=== PATIENT | female | born 1935 | race Hispanic/Latino ===

== ENCOUNTER 2017-06-16 13:31 | Emergency (ER) | payer MEDICARE ==
[~2017-06-16 13:31] MED LIST: AMLO10TA2 PO; ATOR40TA71 PO; CALC0.5C11 PO; CLON0.1T PO; FOLI1TAB85 PO; FURO40TA5 PO; INSU100V3 SQ; LISI10TA7 PO; METO50TA18 PO; NPH,100V SQ
[2017-06-16 14:11] LABS: BASOPHILS % (AUTO) 0.4 % (0.0-5.0); EOSINOPHILS % (AUTO) 0.3 % (0.0-8.0); HEMATOCRIT 32.8 % (36-48); LYMPHOCYTES % (AUTO) 11.3 % (21.0-51.0); MEAN CORPUSCULAR HEMOGLOBIN 30.9 pg (27.0-33.0); MEAN CORPUSCULAR HGB CONC 33.5 g/dL (32.0-36.0); MEAN CORPUSCULAR VOLUME 92.3 fL (79-99); MONOCYTES % (AUTO) 8.1 % (3.0-13.0); NEUTROPHILS % (AUTO) 79.9 % (40.0-77.0); PLATELET COUNT (AUTO) 280 K/uL (130-400); RED BLOOD CELL COUNT(AUTO) 3.56 MIL/uL (4.00-5.50); RED CELL DISTRIBUTION WIDTH 14.3 % (11.0-15.5); WHITE BLOOD COUNT (AUTO) 11.4 K/uL (4.8-10.8)
[2017-06-16 14:17] LABS: CREATININE 1.5 mg/dL (0.5-1.5); POTASSIUM 4.9 mmol/L (3.5-5.1)
[2017-06-16 14:18] LABS: INR 0.98 (0.85-1.15); PARTIAL THROMBOPLASTIN TIME 29.9 SEC (26.3-35.5); PROTHROMBIN TIME 10.3 SEC (9.6-11.6)
[2017-06-16 14:18] LABS: APPEARANCE,URINE Cloudy (CLEAR); BILIRUBIN,URINE Negative (NEGATIVE); COLOR,URINE Yellow (YELLOW); GLUCOSE, URINE (UA) Negative (NEGATIVE); KETONES,URINE Negative (NEGATIVE); LEUKOCYTE ESTERASE ,URINE Large (NEGATIVE); NITRATE,URINE Negative (NEGATIVE); OCCULT BLOOD,URINE Trace (NEGATIVE); PROTEIN,URINE POS 2+ (NEGATIVE); UROBILINOGEN,URINE 0.2 mg/dL (0.2-1.0)
[2017-06-16 14:22] LABS: ALBUMIN 3.1 g/dL (3.5-5.0); BILIRUBIN,TOTAL 0.6 mg/dL (0.2-1.0); TOTAL PROTEIN, SERUM 8.2 g/dL (6.0-8.3)
[2017-06-16] MEDS ORDERED: ONDANSETRON HCL 4 MG/2 ML VIAL ONE (14:22)
[2017-06-16] MEDS ORDERED: FAMOTIDINE/PF 20 MG/2 ML VIAL IV ONE (14:22)
[2017-06-16 14:30] LABS: BACTERIA,URINE Few /HPF (None Seen); RBC,URINE 0-1 /HPF (0-1)
[2017-06-16 14:38] LABS: B-TYPE NATRIURETIC PEPTIDE 1440 pg/mL (0-100)
[2017-06-16] MEDS ORDERED: NITROFURANTOIN MONOHYD/M-CRYST 100 MG CAPSULE PO ONE (14:53)
[2017-06-16] MEDS ORDERED: FUROSEMIDE 10 MG/ML 4ML VIAL ONE (14:53)
[2017-06-16] MEDS ORDERED: TRAMADOL HCL 50 MG TABLET ONE (14:54)
[2017-06-17] MEDS ORDERED: INSU500V SQ (12:00)
[2017-06-17] MEDS ORDERED: NPH,100V SQ (12:00)
[2017-06-17] MEDS ORDERED: TRAM50TA4 PO (12:00)
[2017-06-17] MEDS ORDERED: PREG50 PO (12:01)
== END 2017-06-16 16:04 | disposition home or self-care (01) ==
LOC: EDH 13:31
DX: I11.0 Hypertensive heart disease with heart failure (principal); N39.0 Urinary tract infection, site not specified; I50.9 Heart failure, unspecified; E11.9 Type 2 diabetes mellitus without complications; Z86.73 Personal history of transient ischemic attack (TIA), and cerebral infarction without residual deficits; Z88.0 Allergy status to penicillin
CPT/HCPCS: 36415; 71045; 80053; 81001; 82150; 83690; 83880; 84484; 85025; 85610; 85730; 93005; 96374; 96375; 99285; J1940; J2405; J3490

== ENCOUNTER 2017-06-17 09:24 | Inpatient (IN) | payer MEDICARE ==
[~2017-06-17] VITALS: Ht 157.5 cm; Wt 91.2 kg
[2017-06-17] MEDS ORDERED: HYDROCODONE/ACETAMINOPHEN 10/325 MG TAB ONE (09:50)
[2017-06-17 09:54] LABS: BASOPHILS % (AUTO) 0.2 % (0.0-5.0); EOSINOPHILS % (AUTO) 0.1 % (0.0-8.0); HEMATOCRIT 32.5 % (36-48); LYMPHOCYTES % (AUTO) 5.3 % (21.0-51.0); MEAN CORPUSCULAR HEMOGLOBIN 31.2 pg (27.0-33.0); MEAN CORPUSCULAR HGB CONC 33.5 g/dL (32.0-36.0); MEAN CORPUSCULAR VOLUME 93.3 fL (79-99); MONOCYTES % (AUTO) 8.9 % (3.0-13.0); NEUTROPHILS % (AUTO) 85.5 % (40.0-77.0); PLATELET COUNT (AUTO) 279 K/uL (130-400); RED BLOOD CELL COUNT(AUTO) 3.48 MIL/uL (4.00-5.50); RED CELL DISTRIBUTION WIDTH 14.2 % (11.0-15.5)
[2017-06-17 10:13] LABS: APPEARANCE,URINE TURBID (CLEAR); BILIRUBIN,URINE NEGATIVE (NEGATIVE); COLOR,URINE YELLOW (YELLOW); GLUCOSE, URINE (UA) NEGATIVE (NEGATIVE); KETONES,URINE NEGATIVE (NEGATIVE); LEUKOCYTE ESTERASE ,URINE MODERATE (NEGATIVE); NITRATE,URINE NEGATIVE (NEGATIVE); OCCULT BLOOD,URINE SMALL (NEGATIVE); PROTEIN,URINE >=300 (NEGATIVE); UROBILINOGEN,URINE 0.2 mg/dL (0.2-1.0)
[2017-06-17 10:14] LABS: CREATININE 1.8 mg/dL (0.5-1.5); POTASSIUM 4.8 mmol/L (3.5-5.1)
[2017-06-17 10:18] LABS: BILIRUBIN,TOTAL 0.7 mg/dL (0.2-1.0); TOTAL PROTEIN, SERUM 8.1 g/dL (6.0-8.3)
[2017-06-17 10:33] LABS: BACTERIA,URINE Moderate /HPF (None Seen); SQUAMOUS EPITHELIAL CELL,UR 30-50 /LPF (0-2)
[2017-06-17 10:34] LABS: WBC,URINE 51-100 /HPF (0-1)
[2017-06-17] MEDS ORDERED: INSULIN HUMULIN R 100 UNIT/ML 3ML ONE (10:38)
[2017-06-17] MEDS ORDERED: CEFTRIAXONE SODIUM 1 GM ONE (10:44)
[2017-06-17] MEDS ORDERED: FUROSEMIDE 10 MG/ML 4ML VIAL ONE (11:10)
[2017-06-17] MEDS ORDERED: TRAM50TA4 PO (12:00)
[2017-06-17] MEDS ORDERED: ONDANSETRON HCL 4 MG/2 ML VIAL IVP PRN (12:00)
[2017-06-17] MEDS ORDERED: INSU500V SQ (12:00)
[2017-06-17] MEDS ORDERED: NPH,100V SQ (12:00)
[2017-06-17] MEDS ORDERED: ACETAMINOPHEN 325 MG TAB PO PRN (12:00)
[2017-06-17] MEDS ORDERED: PREG50 PO (12:01)
[2017-06-17 12:10] VITALS: BP 136/76
[2017-06-17] MEDS: HEPARIN SODIUM 5000UNIT/ML 1ML VIAL SQ SCH ×2 (14:08→20:13)
[2017-06-17] MEDS ORDERED: TRAMADOL HCL 50 MG TABLET PO PRN (15:30)
[2017-06-17 16:00] VITALS: BP 185/68
[2017-06-17] MEDS: INSULIN R PO SS1 SQ SCH ×2 (16:30→20:58)
[2017-06-17] MEDS ORDERED: CLONIDINE HCL 0.1 MG TABLET PO PRN (17:00)
[2017-06-17] MEDS ORDERED: FUROSEMIDE 40 MG TABLET PO SCH (17:00)
[2017-06-17] MEDS ORDERED: CLONIDINE HCL 0.1 MG TABLET ONE (17:01)
[2017-06-17] MEDS: CLONIDINE HCL 0.1 MG TABLET PO SCH (17:07)
[2017-06-17] MEDS: INSULIN HUMULIN R 100 UNIT/ML 3ML SQ SCH (17:36)
[2017-06-17 19:30] VITALS: BP 146/80
[2017-06-17] MEDS: CEFTRIAXONE SODIUM 1 GM IVP SCH (20:35)
[2017-06-17] MEDS: ATORVASTATIN CALCIUM 40 MG TABLET PO SCH (20:35)
[2017-06-17] MEDS: METOPROLOL TARTRATE 50 MG TAB PO SCH (20:35)
[2017-06-17] MEDS: PREGABALIN 25 MG CAP PO SCH (20:36)
[2017-06-17] MEDS ORDERED: INSULIN NPH 100 UNIT/ML 3ML SQ SCH (21:00)
[2017-06-17 23:25] VITALS: BP 165/65
[2017-06-18] VITALS (7 sets, daily range): BP systolic 123–170; BP diastolic 52–98
[2017-06-18 03:58] LABS: HEMATOCRIT 29.2 % (36-48); MEAN CORPUSCULAR HEMOGLOBIN 30.9 pg (27.0-33.0); MEAN CORPUSCULAR HGB CONC 33.5 g/dL (32.0-36.0); MEAN CORPUSCULAR VOLUME 92.1 fL (79-99); NUCLEATED RED BLOOD CELLS 0.1 % (0.0-0.19); PLATELET COUNT (AUTO) 251 K/uL (130-400); RED BLOOD CELL COUNT(AUTO) 3.17 MIL/uL (4.00-5.50); RED CELL DISTRIBUTION WIDTH 14.1 % (11.0-15.5); WHITE BLOOD COUNT (AUTO) 12.9 K/uL (4.8-10.8)
[2017-06-18 04:08] LABS: MAGNESIUM 2.4 mg/dL (1.80-2.40); PHOSPHORUS 3.9 mg/dL (2.5-4.9)
[2017-06-18 04:13] LABS: B-TYPE NATRIURETIC PEPTIDE 1860 pg/mL (0-100)
[2017-06-18] MEDS: INSULIN R PO SS1 SQ SCH ×4 (07:30→21:00)
[2017-06-18] MEDS: INSULIN HUMULIN R 100 UNIT/ML 3ML SQ SCH ×2 (07:48→17:20)
[2017-06-18] MEDS: INSULIN NPH 100 UNIT/ML 3ML SQ SCH ×2 (07:48→17:20)
[2017-06-18] MEDS: FOLIC ACID/VITAMIN B COMP W-C 1 MG CAPSULE PO SCH (10:42)
[2017-06-18] MEDS: PREGABALIN 25 MG CAP PO SCH ×2 (10:42→21:29)
[2017-06-18] MEDS: METOPROLOL TARTRATE 50 MG TAB PO SCH ×2 (10:43→21:28)
[2017-06-18] MEDS: FOLIC ACID 1 MG TABLET PO SCH (10:43)
[2017-06-18] MEDS: AMLODIPINE BESYLATE 5 MG TAB PO SCH (10:43)
[2017-06-18] MEDS: CLONIDINE HCL 0.1 MG TABLET PO SCH ×2 (10:43→21:28)
[2017-06-18] MEDS: CYANOCOBALAMIN (VITAMIN B-12) 1000 MCG/ML 1ML VIAL IM SCH (10:44)
[2017-06-18] MEDS: CEFTRIAXONE SODIUM 1 GM IVP SCH ×2 (10:49→21:29)
[2017-06-18] MEDS: HEPARIN SODIUM 5000UNIT/ML 1ML VIAL SQ SCH ×2 (11:09→21:46)
[2017-06-18] MEDS: BUMETANIDE 1 MG TAB PO SCH ×2 (12:28→22:12)
[2017-06-18] MEDS: ATORVASTATIN CALCIUM 40 MG TABLET PO SCH (21:28)
[2017-06-19 04:00] VITALS: BP 145/67
[2017-06-19 04:59] LABS: HEMATOCRIT 27.3 % (36-48); MEAN CORPUSCULAR HEMOGLOBIN 31.7 pg (27.0-33.0); MEAN CORPUSCULAR HGB CONC 34.2 g/dL (32.0-36.0); MEAN CORPUSCULAR VOLUME 92.7 fL (79-99); PLATELET COUNT (AUTO) 261 K/uL (130-400); RED BLOOD CELL COUNT(AUTO) 2.95 MIL/uL (4.00-5.50); RED CELL DISTRIBUTION WIDTH 13.9 % (11.0-15.5); WHITE BLOOD COUNT (AUTO) 10.1 K/uL (4.8-10.8)
[2017-06-19 05:38] LABS: CREATININE 1.8 mg/dL (0.5-1.5); MAGNESIUM 2.3 mg/dL (1.80-2.40); POTASSIUM 4.4 mmol/L (3.5-5.1)
[2017-06-19] MEDS: INSULIN R PO SS1 SQ SCH ×4 (06:43→22:10)
[2017-06-19 08:00] VITALS: BP 179/87
[2017-06-19] MEDS: INSULIN NPH 100 UNIT/ML 3ML SQ SCH ×2 (08:04→16:30)
[2017-06-19] MEDS: INSULIN HUMULIN R 100 UNIT/ML 3ML SQ SCH ×2 (08:05→15:08)
[2017-06-19] MEDS: CYANOCOBALAMIN (VITAMIN B-12) 1000 MCG/ML 1ML VIAL IM SCH (09:08)
[2017-06-19] MEDS: CEFTRIAXONE SODIUM 1 GM IVP SCH ×2 (09:25→21:48)
[2017-06-19] MEDS: FOLIC ACID 1 MG TABLET PO SCH (09:31)
[2017-06-19] MEDS: PREGABALIN 25 MG CAP PO SCH ×2 (09:31→21:47)
[2017-06-19] MEDS: FOLIC ACID/VITAMIN B COMP W-C 1 MG CAPSULE PO SCH (09:31)
[2017-06-19] MEDS: METOPROLOL TARTRATE 50 MG TAB PO SCH ×2 (09:31→21:48)
[2017-06-19] MEDS: CLONIDINE HCL 0.1 MG TABLET PO SCH ×2 (09:32→21:48)
[2017-06-19] MEDS: AMLODIPINE BESYLATE 5 MG TAB PO SCH (09:32)
[2017-06-19] MEDS: HEPARIN SODIUM 5000UNIT/ML 1ML VIAL SQ SCH ×2 (09:36→22:09)
[2017-06-19 12:00] VITALS: BP 135/83
[2017-06-19] MEDS: BUMETANIDE 1 MG TAB PO SCH ×2 (14:49→21:47)
[2017-06-19] MEDS ORDERED: ALPRAZOLAM 0.5 MG TABLET PO PRN (15:00)
[2017-06-19 15:58] VITALS: BP 164/73
[2017-06-19 19:11] VITALS: BP 153/69
[2017-06-19] MEDS: ATORVASTATIN CALCIUM 40 MG TABLET PO SCH (21:47)
[2017-06-19 23:55] VITALS: BP 154/60
[2017-06-20] MEDS: IPRATROPIUM/ALBUTEROL SULFATE 3 ML SOLUTION IH SCH ×5 (00:40→23:50)
[2017-06-20 03:33] VITALS: BP 158/70
[2017-06-20 03:59] LABS: BASOPHILS % (AUTO) 0.5 % (0.0-5.0); EOSINOPHILS % (AUTO) 2.5 % (0.0-8.0); LYMPHOCYTES % (AUTO) 13.6 % (21.0-51.0); MEAN CORPUSCULAR HEMOGLOBIN 32.1 pg (27.0-33.0); MEAN CORPUSCULAR HGB CONC 34.6 g/dL (32.0-36.0); MONOCYTES % (AUTO) 9.1 % (3.0-13.0); NEUTROPHILS % (AUTO) 74.3 % (40.0-77.0); PLATELET COUNT (AUTO) 275 K/uL (130-400); RED BLOOD CELL COUNT(AUTO) 2.91 MIL/uL (4.00-5.50); RED CELL DISTRIBUTION WIDTH 13.7 % (11.0-15.5); WHITE BLOOD COUNT (AUTO) 8.4 K/uL (4.8-10.8)
[2017-06-20 04:16] LABS: HEMOGLOBIN A1C 8.2 % (4.0-6.0)
[2017-06-20 04:30] LABS: % IRON SATURATION 15.4 % (22-44)
[2017-06-20 04:36] LABS: ALBUMIN 2.2 g/dL (3.5-5.0); BILIRUBIN,DIRECT 0.1 mg/dL (0.0-0.3); BILIRUBIN,TOTAL 0.2 mg/dL (0.2-1.0); CREATININE 1.7 mg/dL (0.5-1.5); MAGNESIUM 2.5 mg/dL (1.80-2.40); PHOSPHORUS 4.4 mg/dL (2.5-4.9); POTASSIUM 4.1 mmol/L (3.5-5.1)
[2017-06-20] MEDS: INSULIN R PO SS1 SQ SCH ×4 (06:09→22:11)
[2017-06-20] MEDS: INSULIN NPH 100 UNIT/ML 3ML SQ SCH ×2 (07:30→17:17)
[2017-06-20] MEDS: INSULIN HUMULIN R 100 UNIT/ML 3ML SQ SCH ×2 (07:30→17:19)
[2017-06-20 07:38] VITALS: BP 142/80
[2017-06-20] MEDS: AMLODIPINE BESYLATE 5 MG TAB PO SCH (09:42)
[2017-06-20] MEDS: CLONIDINE HCL 0.1 MG TABLET PO SCH ×2 (09:43→21:40)
[2017-06-20] MEDS: FOLIC ACID 1 MG TABLET PO SCH (09:43)
[2017-06-20] MEDS: FOLIC ACID/VITAMIN B COMP W-C 1 MG CAPSULE PO SCH (09:44)
[2017-06-20] MEDS: CYANOCOBALAMIN (VITAMIN B-12) 1000 MCG/ML 1ML VIAL IM SCH (09:44)
[2017-06-20] MEDS: PREGABALIN 25 MG CAP PO SCH ×2 (09:44→21:40)
[2017-06-20] MEDS: METOPROLOL TARTRATE 50 MG TAB PO SCH ×2 (09:44→21:40)
[2017-06-20] MEDS: CEFTRIAXONE SODIUM 1 GM IVP SCH ×2 (09:44→21:46)
[2017-06-20] MEDS: HEPARIN SODIUM 5000UNIT/ML 1ML VIAL SQ SCH ×2 (10:04→22:12)
[2017-06-20 11:00] VITALS: BP 160/62
[2017-06-20] MEDS: BUMETANIDE 1 MG TAB PO SCH ×2 (12:13→21:45)
[2017-06-20 16:00] VITALS: BP 145/59
[2017-06-20 19:24] VITALS: BP 133/67
[2017-06-20] MEDS: ATORVASTATIN CALCIUM 40 MG TABLET PO SCH (21:39)
[2017-06-20 23:32] VITALS: BP 161/55
[2017-06-21 03:40] VITALS: BP 165/72
[2017-06-21 04:12] VITALS: BP 165/72
[2017-06-21] MEDS: IPRATROPIUM/ALBUTEROL SULFATE 3 ML SOLUTION IH SCH ×4 (05:58→23:53)
[2017-06-21] MEDS: INSULIN NPH 100 UNIT/ML 3ML SQ SCH ×2 (06:34→16:30)
[2017-06-21] MEDS: INSULIN HUMULIN R 100 UNIT/ML 3ML SQ SCH ×2 (06:35→16:30)
[2017-06-21] MEDS: INSULIN R PO SS1 SQ SCH ×4 (06:35→21:00)
[2017-06-21 08:00] VITALS: BP 133/63
[2017-06-21] MEDS: PREGABALIN 25 MG CAP PO SCH ×2 (09:18→21:15)
[2017-06-21] MEDS: BUMETANIDE 1 MG TAB PO SCH (09:18)
[2017-06-21] MEDS: FOLIC ACID/VITAMIN B COMP W-C 1 MG CAPSULE PO SCH (09:18)
[2017-06-21] MEDS: FOLIC ACID 1 MG TABLET PO SCH (09:19)
[2017-06-21] MEDS: METOPROLOL TARTRATE 50 MG TAB PO SCH ×2 (09:19→21:15)
[2017-06-21] MEDS: CLONIDINE HCL 0.1 MG TABLET PO SCH ×3 (09:20→21:15)
[2017-06-21] MEDS: AMLODIPINE BESYLATE 5 MG TAB PO SCH (09:21)
[2017-06-21] MEDS: CEFTRIAXONE SODIUM 1 GM IVP SCH (09:21)
[2017-06-21] MEDS: CYANOCOBALAMIN (VITAMIN B-12) 1000 MCG/ML 1ML VIAL IM SCH (09:21)
[2017-06-21] MEDS: IRON SUCROSE COMPLEX 100 MG in SODIUM CHLORIDE 0.9% 50 ML IV SCH (09:34)
[2017-06-21] MEDS: HEPARIN SODIUM 5000UNIT/ML 1ML VIAL SQ SCH ×2 (09:42→21:26)
[2017-06-21 11:00] VITALS: BP 165/66
[2017-06-21] MEDS ORDERED: COMPOUND IV MISC 1 EACH IVSOLN MISC PRN (11:45)
[2017-06-21] MEDS ORDERED: FUROSEMIDE 10 MG/ML 10ML VIAL IVP SCH (12:45)
[2017-06-21] MEDS ORDERED: FUROSEMIDE 10 MG/ML 4ML VIAL IVP SCH (13:00)
[2017-06-21 16:00] VITALS: BP 154/56
[2017-06-21] MEDS: FUROSEMIDE 80 MG TABLET PO SCH (17:44)
[2017-06-21 20:00] VITALS: BP 163/71
[2017-06-21] MEDS: ATORVASTATIN CALCIUM 40 MG TABLET PO SCH (21:15)
[2017-06-21] MEDS: CEFUROXIME AXETIL 250 MG TABLET PO SCH (23:23)
[2017-06-22] VITALS: BP 147/67
[2017-06-22] MEDS: FUROSEMIDE 80 MG TABLET PO SCH ×2 (02:51→09:00)
[2017-06-22 03:50] LABS: BASOPHILS % (AUTO) 0.5 % (0.0-5.0); EOSINOPHILS % (AUTO) 2.5 % (0.0-8.0); HEMATOCRIT 27.3 % (36-48); LYMPHOCYTES % (AUTO) 15.6 % (21.0-51.0); MEAN CORPUSCULAR HEMOGLOBIN 31.2 pg (27.0-33.0); MEAN CORPUSCULAR HGB CONC 33.6 g/dL (32.0-36.0); MONOCYTES % (AUTO) 14.7 % (3.0-13.0); NEUTROPHILS % (AUTO) 66.7 % (40.0-77.0); NUCLEATED RED BLOOD CELLS 0.1 % (0.0-0.19); PLATELET COUNT (AUTO) 272 K/uL (130-400); RED BLOOD CELL COUNT(AUTO) 2.94 MIL/uL (4.00-5.50); WHITE BLOOD COUNT (AUTO) 6.2 K/uL (4.8-10.8)
[2017-06-22 04:00] VITALS: BP 163/66
[2017-06-22 04:02] LABS: ALBUMIN 2.2 g/dL (3.5-5.0); BILIRUBIN,TOTAL 0.4 mg/dL (0.2-1.0); CREATININE 1.9 mg/dL (0.5-1.5); MAGNESIUM 2.1 mg/dL (1.80-2.40); POTASSIUM 4.6 mmol/L (3.5-5.1); TOTAL PROTEIN, SERUM 6.8 g/dL (6.0-8.3)
[2017-06-22] MEDS: IPRATROPIUM/ALBUTEROL SULFATE 3 ML SOLUTION IH SCH ×2 (06:30→11:45)
[2017-06-22] MEDS: INSULIN NPH 100 UNIT/ML 3ML SQ SCH (07:30)
[2017-06-22] MEDS: INSULIN HUMULIN R 100 UNIT/ML 3ML SQ SCH (07:30)
[2017-06-22] MEDS: INSULIN R PO SS1 SQ SCH ×2 (07:47→12:30)
[2017-06-22 08:00] VITALS: BP 155/90
[2017-06-22] MEDS: HEPARIN SODIUM 5000UNIT/ML 1ML VIAL SQ SCH (09:00)
[2017-06-22] MEDS: AMLODIPINE BESYLATE 5 MG TAB PO SCH (09:00)
[2017-06-22] MEDS: CYANOCOBALAMIN (VITAMIN B-12) 1000 MCG/ML 1ML VIAL IM SCH (09:00)
[2017-06-22] MEDS: CEFUROXIME AXETIL 250 MG TABLET PO SCH (09:00)
[2017-06-22] MEDS: IRON SUCROSE COMPLEX 100 MG in SODIUM CHLORIDE 0.9% 50 ML IV SCH (09:00)
[2017-06-22] MEDS: METOPROLOL TARTRATE 50 MG TAB PO SCH (09:00)
[2017-06-22] MEDS: CLONIDINE HCL 0.1 MG TABLET PO SCH (09:00)
[2017-06-22] MEDS: FOLIC ACID/VITAMIN B COMP W-C 1 MG CAPSULE PO SCH (09:00)
[2017-06-22] MEDS: FOLIC ACID 1 MG TABLET PO SCH (09:00)
[2017-06-22] MEDS: PREGABALIN 25 MG CAP PO SCH (09:00)
[2017-06-22 11:57] VITALS: BP 157/61
[2017-06-22] MEDS ORDERED: FURO80TA87 PO (14:15)
[2017-06-22] MEDS ORDERED: IRON18TA PO (16:04)
== END 2017-06-22 17:00 | disposition home or self-care (01) | DRG 682 ==
LOC: EDH 09:24 → EDHIP 11:00 → 3AH 11:25
PROVIDERS: ADMIT Internal Medicine Infectious Disease; ATTEND Internal Medicine Infectious Disease
DX: N17.9 Acute kidney failure, unspecified (principal); I50.33 Acute on chronic diastolic (congestive) heart failure; E11.21 Type 2 diabetes mellitus with diabetic nephropathy; E11.51 Type 2 diabetes mellitus with diabetic peripheral angiopathy without gangrene; I13.0 Hypertensive heart and chronic kidney disease with heart failure and stage 1 through stage 4 chronic kidney disease, or unspecified chronic kidney disease; N39.0 Urinary tract infection, site not specified; E87.1 Hypo-osmolality and hyponatremia; I42.9 Cardiomyopathy, unspecified; N12 Tubulo-interstitial nephritis, not specified as acute or chronic; N25.81 Secondary hyperparathyroidism of renal origin; I50.9 Heart failure, unspecified; E11.22 Type 2 diabetes mellitus with diabetic chronic kidney disease; D64.9 Anemia, unspecified; N18.3 Chronic kidney disease, stage 3 (moderate); D50.9 Iron deficiency anemia, unspecified; D63.8 Anemia in other chronic diseases classified elsewhere; E78.5 Hyperlipidemia, unspecified; I25.10 Atherosclerotic heart disease of native coronary artery without angina pectoris; Z86.73 Personal history of transient ischemic attack (TIA), and cerebral infarction without residual deficits; Z95.0 Presence of cardiac pacemaker; Z88.0 Allergy status to penicillin; Z83.3 Family history of diabetes mellitus
CPT/HCPCS: 36415; 71045; 74176; 76770; 78582; 80048; 80053; 80076; 81001; 82150; 82550; 82728; 82948; 83036; 83540; 83550; 83690; 83735; 83880; 84100; 84484; 85025; 85027; 85610; 85730; 87088; 93005; 93306; 94640; 94664; 96374; 96375; 99291; A4218; A9540; A9558; J0696; J1644; J1756; J1815; J1940; J2405; J3420; J3490

== ENCOUNTER 2017-09-29 08:07 | Inpatient (IN) | payer MEDICARE ==
[~2017-09-29 08:07] MED LIST changes: -CALC0.5C11 PO; -FURO40TA5 PO; +FURO80TA87 PO; -INSU100V3 SQ; +INSU500V SQ; +IRON18TA PO; -LISI10TA7 PO; +PREG50 PO; +TRAM50TA4 PO
[2017-09-29 08:41] LABS: BASOPHILS % (AUTO) 0.5 % (0.0-5.0); EOSINOPHILS % (AUTO) 1.3 % (0.0-8.0); HEMATOCRIT 37.2 % (36-48); LYMPHOCYTES % (AUTO) 14.6 % (21.0-51.0); MEAN CORPUSCULAR HGB CONC 35.2 g/dL (32.0-36.0); MEAN CORPUSCULAR VOLUME 91.1 fL (79-99); MONOCYTES % (AUTO) 7.3 % (3.0-13.0); NEUTROPHILS % (AUTO) 76.3 % (40.0-77.0); PLATELET COUNT (AUTO) 249 K/uL (130-400); RED BLOOD CELL COUNT(AUTO) 4.08 MIL/uL (4.00-5.50); RED CELL DISTRIBUTION WIDTH 13.6 % (11.0-15.5)
[2017-09-29 08:50] LABS: CREATININE 1.3 mg/dL (0.5-1.5); POTASSIUM 3.9 mmol/L (3.5-5.1)
[2017-09-29 08:55] LABS: ALBUMIN 3.5 g/dL (3.5-5.0); BILIRUBIN,TOTAL 0.7 mg/dL (0.2-1.0); TOTAL PROTEIN, SERUM 8.6 g/dL (6.0-8.3)
[2017-09-29 09:06] LABS: B-TYPE NATRIURETIC PEPTIDE 1170 pg/mL (0-100)
[2017-09-29] MEDS ORDERED: FUROSEMIDE 10 MG/ML 4ML VIAL ONE ×2 (09:54→21:52)
[2017-09-29] MEDS ORDERED: DEXTROSE 50%-WATER 50 ML DISP.SYRIN IV PRN (10:00)
[2017-09-29] MEDS ORDERED: GLUCAGON 1MG KIT 1 MG ML IM PRN (10:00)
[2017-09-29] MEDS ORDERED: IPRATROPIUM/ALBUTEROL SULFATE 3 ML SOLUTION IH ONE (10:08)
[2017-09-29] MEDS ORDERED: ONDANSETRON HCL MDV 20ML 2 MG/ML VIAL ONE (10:18)
[2017-09-29] MEDS: INSULIN R PO SS1 SQ SCH ×3 (11:30→21:00)
[2017-09-29] MEDS ORDERED: PROMETHAZINE HCL 25 MG/ML 1ML AMPULE IM ONE (13:06)
[2017-09-29] MEDS ORDERED: ENOXAPARIN SODIUM 40 MG/0.4 ML SYRINGE SQ ONE (16:57)
[2017-09-29 21:03] LABS: CREATINE KINASE, TOTAL 60 U/L (21-232); MYOGLOBIN 95 ng/mL (10-92); TROPONIN I < 0.04 ng/mL (0.00-0.06)
[2017-09-29 22:43] VITALS: BP 170/62
[2017-09-29] MEDS: FUROSEMIDE 10 MG/ML 4ML VIAL IVP SCH (23:14)
[2017-09-29 23:48] VITALS: BP 163/60
[2017-09-30] MEDS: PROMETHAZINE HCL 25 MG/ML 1ML AMPULE IM SCH ×2 (00:30→00:33)
[2017-09-30] MEDS ORDERED: PROMETHAZINE HCL 25 MG/ML 1ML AMPULE IM ONE (00:30)
[2017-09-30 04:11] VITALS: BP 177/68
[2017-09-30] MEDS: PROMETHAZINE HCL 25 MG/ML 1ML AMPULE IM PRN ×2 (04:33→06:54)
[2017-09-30] MEDS: INSULIN R PO SS1 SQ SCH ×4 (06:01→21:00)
[2017-09-30 07:40] LABS: HEMATOCRIT 37.1 % (36-48); MEAN CORPUSCULAR HEMOGLOBIN 30.1 pg (27.0-33.0); MEAN CORPUSCULAR HGB CONC 32.8 g/dL (32.0-36.0); PLATELET COUNT (AUTO) 259 K/uL (130-400); RED BLOOD CELL COUNT(AUTO) 4.03 MIL/uL (4.00-5.50); RED CELL DISTRIBUTION WIDTH 13.9 % (11.0-15.5); WHITE BLOOD COUNT (AUTO) 9.1 K/uL (4.8-10.8)
[2017-09-30 08:01] LABS: ALBUMIN 3.3 g/dL (3.5-5.0); BILIRUBIN,TOTAL 0.8 mg/dL (0.2-1.0); CREATININE 1.4 mg/dL (0.5-1.5); MAGNESIUM 2.2 mg/dL (1.80-2.40); POTASSIUM 3.9 mmol/L (3.5-5.1); TOTAL PROTEIN, SERUM 8.3 g/dL (6.0-8.3)
[2017-09-30 08:16] LABS: CREATINE KINASE MB 1.9 ng/mL (0.5-3.6); CREATINE KINASE, TOTAL 222 U/L (21-232); MYOGLOBIN 486 ng/mL (10-92); TROPONIN I < 0.04 ng/mL (0.00-0.06)
[2017-09-30 09:30] VITALS: BP 166/76
[2017-09-30] MEDS: FUROSEMIDE 10 MG/ML 4ML VIAL IVP SCH ×2 (10:58→21:56)
[2017-09-30] MEDS: ENOXAPARIN SODIUM 40 MG/0.4 ML SYRINGE SQ SCH (10:58)
[2017-09-30 12:00] VITALS: BP 194/87
[2017-09-30] MEDS ORDERED: HYDRALAZINE HCL 25 MG TABLET PO SCH (12:45)
[2017-09-30] MEDS ORDERED: METO50TA18 PO (12:58)
[2017-09-30] MEDS ORDERED: AMLO10TA2 PO (12:58)
[2017-09-30] MEDS ORDERED: ATOR40TA69 PO (12:58)
[2017-09-30] MEDS ORDERED: FURO40TA5 PO (12:58)
[2017-09-30] MEDS ORDERED: CLON0.1T PO (12:58)
[2017-09-30] MEDS ORDERED: CALC0.253 PO (12:58)
[2017-09-30] MEDS ORDERED: FOLI0.8T22 PO (12:58)
[2017-09-30 16:51] VITALS: BP 182/74
[2017-09-30 19:54] VITALS: BP 179/77
[2017-09-30] MEDS: METOPROLOL TARTRATE 50 MG TAB PO SCH (21:56)
[2017-09-30 23:30] VITALS: BP 154/74
[2017-10-01] MEDS: PROMETHAZINE HCL 25 MG/ML 1ML AMPULE IM SCH (00:30)
[2017-10-01] MEDS: CLONIDINE HCL 0.1 MG TABLET PO SCH ×3 (01:35→20:31)
[2017-10-01 04:03] VITALS: BP 165/72
[2017-10-01 04:09] LABS: BASOPHILS % (AUTO) 0.4 % (0.0-5.0); EOSINOPHILS % (AUTO) 2.2 % (0.0-8.0); HEMATOCRIT 34.8 % (36-48); LYMPHOCYTES % (AUTO) 15.6 % (21.0-51.0); MEAN CORPUSCULAR HEMOGLOBIN 31.2 pg (27.0-33.0); MEAN CORPUSCULAR HGB CONC 33.9 g/dL (32.0-36.0); MEAN CORPUSCULAR VOLUME 92.1 fL (79-99); MONOCYTES % (AUTO) 9.4 % (3.0-13.0); NEUTROPHILS % (AUTO) 72.4 % (40.0-77.0); PLATELET COUNT (AUTO) 273 K/uL (130-400); RED BLOOD CELL COUNT(AUTO) 3.78 MIL/uL (4.00-5.50); RED CELL DISTRIBUTION WIDTH 13.9 % (11.0-15.5); WHITE BLOOD COUNT (AUTO) 8.4 K/uL (4.8-10.8)
[2017-10-01 04:19] LABS: ALBUMIN 2.9 g/dL (3.5-5.0); BILIRUBIN,TOTAL 0.5 mg/dL (0.2-1.0); CREATININE 1.5 mg/dL (0.5-1.5); MAGNESIUM 2.1 mg/dL (1.80-2.40); POTASSIUM 4.4 mmol/L (3.5-5.1); TOTAL PROTEIN, SERUM 7.5 g/dL (6.0-8.3)
[2017-10-01 05:22] LABS: B-TYPE NATRIURETIC PEPTIDE 1210 pg/mL (0-100)
[2017-10-01] MEDS: INSULIN R PO SS1 SQ SCH ×4 (06:20→20:29)
[2017-10-01 07:00] VITALS: BP 169/72
[2017-10-01] MEDS: METOPROLOL TARTRATE 50 MG TAB PO SCH ×2 (09:44→20:30)
[2017-10-01] MEDS: AMLODIPINE BESYLATE 5 MG TAB PO SCH (09:44)
[2017-10-01] MEDS: FOLIC ACID/VITAMIN B COMP W-C 1 MG CAPSULE PO SCH (09:44)
[2017-10-01] MEDS: ATORVASTATIN CALCIUM 40 MG TABLET PO SCH (09:44)
[2017-10-01] MEDS: CALCITRIOL 0.25 MCG CAPSULE PO SCH (09:44)
[2017-10-01] MEDS: FUROSEMIDE 10 MG/ML 4ML VIAL IVP SCH ×2 (09:46→20:31)
[2017-10-01] MEDS: ENOXAPARIN SODIUM 40 MG/0.4 ML SYRINGE SQ SCH (09:46)
[2017-10-01 11:00] VITALS: BP 167/73
[2017-10-01] MEDS ORDERED: ONDANSETRON HCL 4 MG/2 ML VIAL IVP PRN (11:00)
[2017-10-01 16:00] VITALS: BP 147/70
[2017-10-01 19:57] VITALS: BP 162/78
[2017-10-01 23:25] VITALS: BP 126/45
[2017-10-02 03:42] LABS: HEMATOCRIT 34.5 % (36-48); MEAN CORPUSCULAR HEMOGLOBIN 30.9 pg (27.0-33.0); MEAN CORPUSCULAR HGB CONC 33.6 g/dL (32.0-36.0); MEAN CORPUSCULAR VOLUME 91.9 fL (79-99); PLATELET COUNT (AUTO) 247 K/uL (130-400); RED BLOOD CELL COUNT(AUTO) 3.76 MIL/uL (4.00-5.50); WHITE BLOOD COUNT (AUTO) 7.9 K/uL (4.8-10.8)
[2017-10-02 03:50] VITALS: BP 151/74
[2017-10-02 03:50] LABS: CREATININE 1.6 mg/dL (0.5-1.5); POTASSIUM 4.3 mmol/L (3.5-5.1)
[2017-10-02] MEDS: INSULIN R PO SS1 SQ SCH ×4 (06:29→20:33)
[2017-10-02 07:30] VITALS: BP 170/64
[2017-10-02] MEDS: ATORVASTATIN CALCIUM 40 MG TABLET PO SCH (09:35)
[2017-10-02] MEDS: AMLODIPINE BESYLATE 5 MG TAB PO SCH (09:35)
[2017-10-02] MEDS: FOLIC ACID/VITAMIN B COMP W-C 1 MG CAPSULE PO SCH (09:35)
[2017-10-02] MEDS: FUROSEMIDE 10 MG/ML 4ML VIAL IVP SCH ×2 (09:36→21:06)
[2017-10-02] MEDS: METOPROLOL TARTRATE 50 MG TAB PO SCH ×2 (09:36→21:06)
[2017-10-02] MEDS: CLONIDINE HCL 0.1 MG TABLET PO SCH ×2 (09:36→21:06)
[2017-10-02] MEDS: ENOXAPARIN SODIUM 40 MG/0.4 ML SYRINGE SQ SCH (09:37)
[2017-10-02 11:15] VITALS: BP 154/67
[2017-10-02 16:10] VITALS: BP 155/70
[2017-10-02] MEDS ORDERED: DIATR MEGLU/DIATRIZOATE SODIUM 30 ML BOTTLE ONE (18:04)
[2017-10-02 19:50] VITALS: BP 176/71
[2017-10-02 23:42] VITALS: BP 141/55
[2017-10-03 04:06] VITALS: BP 158/63
[2017-10-03] MEDS: INSULIN R PO SS1 SQ SCH ×2 (05:41→11:20)
[2017-10-03 07:40] VITALS: BP 143/91
[2017-10-03] MEDS: METOPROLOL TARTRATE 50 MG TAB PO SCH (09:09)
[2017-10-03] MEDS: CLONIDINE HCL 0.1 MG TABLET PO SCH (09:09)
[2017-10-03] MEDS: ATORVASTATIN CALCIUM 40 MG TABLET PO SCH (09:09)
[2017-10-03] MEDS: CALCITRIOL 0.25 MCG CAPSULE PO SCH (09:09)
[2017-10-03] MEDS: FOLIC ACID/VITAMIN B COMP W-C 1 MG CAPSULE PO SCH (09:09)
[2017-10-03] MEDS: AMLODIPINE BESYLATE 5 MG TAB PO SCH (09:09)
[2017-10-03] MEDS: ENOXAPARIN SODIUM 40 MG/0.4 ML SYRINGE SQ SCH (09:10)
[2017-10-03] MEDS: FUROSEMIDE 10 MG/ML 4ML VIAL IVP SCH (09:10)
[2017-10-03 11:30] VITALS: BP 147/83
== END 2017-10-03 14:21 | disposition home or self-care (01) | DRG 291 ==
LOC: EDH 08:07 → EDHIP 09:40 → OBSVTOIN 09:40 → 4CH 09-30 07:53 → 2DH 09-30 16:07
PROVIDERS: ADMIT Internal Medicine Infectious Disease; ATTEND Internal Medicine Infectious Disease
DX: I13.0 Hypertensive heart and chronic kidney disease with heart failure and stage 1 through stage 4 chronic kidney disease, or unspecified chronic kidney disease (principal); I50.33 Acute on chronic diastolic (congestive) heart failure; J96.90 Respiratory failure, unspecified, unspecified whether with hypoxia or hypercapnia; E11.22 Type 2 diabetes mellitus with diabetic chronic kidney disease; N18.9 Chronic kidney disease, unspecified; E66.9 Obesity, unspecified; E78.5 Hyperlipidemia, unspecified; F41.9 Anxiety disorder, unspecified; I08.1 Rheumatic disorders of both mitral and tricuspid valves; Z83.3 Family history of diabetes mellitus; Z86.73 Personal history of transient ischemic attack (TIA), and cerebral infarction without residual deficits; Z95.0 Presence of cardiac pacemaker; Z88.0 Allergy status to penicillin; Z79.899 Other long term (current) drug therapy
CPT/HCPCS: 36415; 71045; 74176; 78481; 80048; 80053; 82550; 82553; 82948; 83735; 83874; 83880; 84484; 85025; 85027; 93005; 94640; 99291; A9512; J1650; J1815; J1940; J2405; J2550; Q9963